=== PATIENT | male | born 1970 | race Caucasian/White ===

== ENCOUNTER → 2016-06-12 | Outpatient (CLI) | payer OTHER ==
--- NOTE | 2016-06-12 16:33 | XR ---
EXAMINATION TYPE: XR cervical spine w flex/ext DATE OF EXAM: 06/12/2016 4:26 PM TECHNIQUE: Frontal, lateral, oblique, dynamic flexion and extension lateral images, and open mouth vi ew of the cervical spine are obtained. HISTORY: Mid cervical fracture with fusion progress study. COMPARISON: Cervical spine x-ray May 26, 2014 FINDINGS: The cervical spine is visualized in its entirety from C1 thru the top of T1 level, it is s table and satisfactory in alignment without evidence of acute fracture or dislocation. The pre-verte bral soft tissue appears within normal limits. The C1-C2 articulation is within normal limits on the open mouth view. There is redemonstration of vertebral fusion hardware and artificial disks at C3-C4 and C4-C5 levels. There is increasing anterior spurring at these levels. There is new mild disc space narrowing at C6- C7 level. There is increasing ossification or spurring at anterior C5-C6 level. The oblique images ar e within normal limits. Dynamic images show satisfactory flexion and extension without evidence of fo logan subluxation. Alignment is maintained. Sternal wire is redemonstrated in overlying soft tissue of the upper thorax. IMPRESSION: Stable and satisfactory alignment in the cervical spine. No focal subluxation seen on dyn amic images. Some increasing degenerative change is noted since 2013.
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
== END | disposition home or self-care (01) ==
LOC: RADXRMAIN 15:52
PROVIDERS: ATTEND Orthopaedic Surgery
DX: Z09 Encounter for follow-up examination after completed treatment for conditions other than malignant neoplasm (principal); Z98.1 Arthrodesis status; M47.812 Spondylosis without myelopathy or radiculopathy, cervical region
CPT/HCPCS: 72052; 72114

== ENCOUNTER 2020-11-12 16:14 | Emergency (ER) | payer OTHER ==
[2020-11-12 16:37] VITALS: RESP 18
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
[2020-11-12] MEDS: HYDROcodone/APAP 5-325MG 1 EACH TAB PO STA (16:43)
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
[2020-11-12 18:25] LABS: Basophils # (A) 0.1 k/uL (0-0.2); Basophils % (A) 1 %; Eosinophils # (A) 0.2 k/uL (0-0.7); Eosinophils % (A) 2 %; HCT 45.6 % (39.0-53.0); HGB 16.3 gm/dL (13.0-17.5); Lymphocytes # (A) 2.3 k/uL (1.0-4.8); Lymphocytes % (A) 21 %; MCH 34.1 pg (25.0-35.0); MCHC 35.7 g/dL (31.0-37.0); MCV 95.6 fL (80.0-100.0); Mean Platelet Volume 6.5; Monocytes # (A) 0.6 k/uL (0-1.0); Monocytes % (A) 6 %; Neutrophils # (A) 7.9 k/uL (1.3-7.7); Neutrophils % (A) 71 %; Platelet Count 293 k/uL (150-450); RBC 4.78 m/uL (4.30-5.90); RDW 11.8 % (11.5-15.5); WBC 11.2 k/uL (3.8-10.6)
[2020-11-12 18:33] LABS: Prothrombin Time 10.8 sec (9.0-12.0)
[2020-11-12 18:42] VITALS: BP 136/78; PULSE 90; TEMP 98
[2020-11-12 18:45] LABS: ALT 20 U/L (4-49); AST 30 U/L (17-59); African American GFR (CKD) >90 (>60 ml/min/1.73 sqM); Albumin 4.9 g/dL (3.5-5.0); Alkaline Phosphatase 78 U/L (38-126); Anion Gap 8 mmol/L; Blood Urea Nitrogen 11 mg/dL (9-20); Carbon Dioxide 25 mmol/L (22-30); Chloride 106 mmol/L (98-107); Glucose 85 mg/dL (74-99); Non-African American GFR(CKD) 87 (>60 ml/min/1.73 sqM); Potassium 4.4 mmol/L (3.5-5.1); Sodium 139 mmol/L (137-145); Total Bilirubin 0.6 mg/dL (0.2-1.3); Total Protein 7.5 g/dL (6.3-8.2)
== END 2020-11-12 18:42 | disposition home or self-care (01) ==
LOC: EC 16:14
DX: S13.4XXA Sprain of ligaments of cervical spine, initial encounter (principal); V43.52XA Car driver injured in collision with other type car in traffic accident, initial encounter; F17.200 Nicotine dependence, unspecified, uncomplicated
CPT/HCPCS: 36415; 70450; 71260; 72125; 74177; 80053; 84484; 85025; 85610; 85730; 93005